=== PATIENT | female | born 1990 | race Caucasian/White ===

== ENCOUNTER 2017-03-20 08:45 | Inpatient (IN) | payer MEDICAID ==
[~2017-03-20] VITALS: Ht 160 cm; Wt 108.4 kg
[2017-03-20] MEDS ORDERED: DEXT 5%/LR + PITOCIN 20UNITS/L 1,000 ML IV SCH ×2 (09:48→12:12)
[2017-03-20] MEDS ORDERED: PNV1TABL76 PO (09:48)
[2017-03-20] MEDS ORDERED: LACTATED RINGERS 1,000 ML IV SCH (09:48)
[2017-03-20] MEDS ORDERED: PENICILLIN G POTASSIUM 5 MMU in SODIUM CHLORIDE 0.9% 100 ML IV SCH (10:00)
[2017-03-20] MEDS ORDERED: BUTORPHANOL TARTRATE 2 MG/ML VIAL IV PRN (10:00)
[2017-03-20] MEDS ORDERED: MISOPROSTOL 100MCG TABLET VG SCH (10:00)
[2017-03-20] MEDS ORDERED: METHYLERGONOVINE MALEATE 0.2 MG/ML IM PRN (10:00)
[2017-03-20] MEDS ORDERED: CARBOPROST TROMETHAMINE 250 MCG/ML AMPUL IM PRN (10:00)
[2017-03-20] MEDS ORDERED: NALOXONE HCL 0.4 MG/ML 1ML VIAL IM PRN (10:00)
[2017-03-20] MEDS ORDERED: LIDOCAINE HCL 1% 20ML VIAL (Pyxis) INJ INFIL SCH (10:00)
[2017-03-20 11:10] LABS: BASOPHILS % 0.2 % (0.0-2.0); EOSINOPHILS % 0.2 % (0.0-5.0); HEMATOCRIT. 39.6 % (36.0-48.0); HEMOGLOBIN. 13.3 g/dL (12.0-16.0); LYMPHOCYTES % 10.5 % (20.0-50.0); MEAN CORPUSCULAR HEMOGLOBIN 28.8 pg (28.0-32.0); MEAN CORPUSCULAR VOLUME 85.6 fL (81.0-99.0); MEAN PLATELET VOLUME 10.7 fl (7.4-10.4); NEUTROPHILS % 84.1 % (40.0-76.0); PLATELET 170 x1000/uL (130-400); RED BLOOD CELL COUNT 4.63 mill/uL (4.2-5.4); RED CELL DISTRIBUTION WIDTH 13.9 % (11.6-14.6)
[2017-03-20 11:42] LABS: INR 0.9; PARTIAL THROMBOPLASTIN TIME 28.5 sec (23.4-31.0); PROTHROMBIN TIME 9.9 sec (9.4-11.6)
[2017-03-20] MEDS ORDERED: DIPHENHYDRAMINE 25MG CAPSULE PO PRN (12:15)
[2017-03-20] MEDS ORDERED: HEMORRHOIDAL SUPP PR PRN (12:15)
[2017-03-20] MEDS ORDERED: LANOLIN OINT 0.25 GM TUBE TOP PRN (12:15)
[2017-03-20] MEDS ORDERED: BENZOCAINE/LANOLIN/ALOE VERA SPRAY TOP PRN (12:15)
[2017-03-20] MEDS ORDERED: ACETAMINOPHEN WITH CODEINE 300/30MG TABLET PO PRN (12:15)
[2017-03-20] MEDS ORDERED: GLYCERIN/WITCH HAZEL LEAF MEDICATED PAD TOP PRN (12:15)
[2017-03-20 12:54] LABS: HEPATITIS B SURFACE ANTIGEN NEGATIVE
[2017-03-20] MEDS ORDERED: PENICILLIN G POTASSIUM 2.5 MMU in SODIUM CHLORIDE 0.9% 50 ML IV SCH (14:00)
[2017-03-20 15:00] VITALS: BP 115/67
[2017-03-20 15:30] VITALS: BP 113/68
[2017-03-20 20:00] VITALS: BP 114/59
[2017-03-20] MEDS: DOCUSATE SODIUM 100MG CAPSULE PO SCH (21:04)
[2017-03-21] MEDS: IBUPROFEN 800MG TABLET PO PRN ×2 (03:16→11:08)
[2017-03-21 04:30] VITALS: BP 125/82
[2017-03-21 07:24] LABS: BASOPHILS % 0.2 % (0.0-2.0); EOSINOPHILS % 0.3 % (0.0-5.0); HEMATOCRIT. 34.3 % (36.0-48.0); HEMOGLOBIN. 11.7 g/dL (12.0-16.0); LYMPHOCYTES % 24.8 % (20.0-50.0); MEAN CORPUSCULAR HEMOGLOBIN 29.3 pg (28.0-32.0); MEAN PLATELET VOLUME 10.5 fl (7.4-10.4); NEUTROPHILS % 66.7 % (40.0-76.0); PLATELET 156 x1000/uL (130-400); RED CELL DISTRIBUTION WIDTH 14.3 % (11.6-14.6)
[2017-03-21 07:30] VITALS: BP 95/53
[2017-03-21] MEDS: PRENATAL VIT/FE FUMARATE/FA TABLET PO SCH (11:08)
[2017-03-21] MEDS ORDERED: FERROUS SULFATE 325MG TABLET PO SCH (12:10)
[2017-03-21 16:17] VITALS: BP 106/49
[2017-03-21] MEDS: IBUPROFEN 400MG TABLET PO PRN (20:17)
[2017-03-21] MEDS: DOCUSATE SODIUM 100MG CAPSULE PO SCH (21:14)
[2017-03-22 00:05] VITALS: BP 101/54
[2017-03-22 07:15] VITALS: BP 99/69
[2017-03-22] MEDS: PRENATAL VIT/FE FUMARATE/FA TABLET PO SCH (09:53)
[2017-03-22] MEDS: IBUPROFEN 800MG TABLET PO PRN (09:55)
[2017-03-22] MEDS ORDERED: INFLUENZA VIRUS VACCINE 0.5ML SYR IM ONE (12:15)
[2017-03-22] MEDS ORDERED: TETANUS, DIPHTHERIA, PERTUSSIS VAC/PF 0.5ML (>7YR OLD) IM ONE (12:15)
== END 2017-03-22 11:15 | disposition home or self-care (01) | DRG 560 ==
LOC: OBSVTOIN 08:45 → L&D 08:45 → 7EST PP/OB 16:37
PROVIDERS: ADMIT Specialist; ATTEND Specialist
PROC: 0HQ9XZZ Repair Perineum Skin, External Approach (ICD-10-PCS; 2017-03-20)
PROC: 10E0XZZ Delivery of Products of Conception, External Approach (ICD-10-PCS; principal; 2017-03-20 11:48)
DX: O60.14X0 Preterm labor third trimester with preterm delivery third trimester, not applicable or unspecified (principal); D64.9 Anemia, unspecified; O99.824 Streptococcus B carrier state complicating childbirth; O99.03 Anemia complicating the puerperium; O70.0 First degree perineal laceration during delivery; Z37.0 Single live birth; Z3A.36 36 weeks gestation of pregnancy
CPT/HCPCS: 36415; 76815; 82962; 85025; 85610; 85730; 86592; 86703; 86762; 86850; 86900; 87340; 90686; 90715; J0595; J2540; J2590; J3490; J7050; J7120

== ENCOUNTER 2019-04-25 07:28 | Emergency (ER) | payer SELFPAY ==
[~2019-04-25] VITALS: Ht 160 cm; Wt 92.0 kg
[~2019-04-25 07:28] MED LIST: PNV1TABL76 PO
[2019-04-25] MEDS ORDERED: ACETAMINOPHEN 325MG TABLET PO STA (08:10)
[2019-04-25] MEDS ORDERED: ONDANSETRON 4MG ODT PO STA (08:10)
[2019-04-25 08:58] LABS: CLARITY URINE CLEAR (CLEAR); COLOR URINE YELLOW (YELLOW); KETONES URINE TRACE (NEGATIVE); LEUKOCYTE ESTERASE URINE NEGATIVE (NEGATIVE); NITRITE URINE NEGATIVE (NEGATIVE); OCCULT BLOOD URINE NEGATIVE (NEGATIVE); PROTEIN URINE 1+ (NEGATIVE); SPECIFIC GRAVITY URINE 1.021 (1.005-1.030); UROBILINOGEN URINE 0.2 E.U./dL (0.2-1.0)
[2019-04-25 10:01] VITALS: BP 117/61
== END 2019-04-25 10:02 | disposition home or self-care (01) ==
LOC: ER 07:28
DX: K52.9 Noninfective gastroenteritis and colitis, unspecified (principal)
CPT/HCPCS: 81003; 81025; 99283; Q0162

== ENCOUNTER 2020-11-08 13:58 | Emergency (ER) | payer MEDICAID ==
[~2020-11-08] VITALS: Ht 160 cm; Wt 82.0 kg
[2020-11-08] MEDS ORDERED: SODIUM CHLORIDE 0.9% 1,000 ML IV ONE (14:45)
[2020-11-08 15:30] LABS: CLARITY URINE TURBID (CLEAR); COLOR URINE RED (YELLOW); KETONES URINE 1+ (NEGATIVE); LEUKOCYTE ESTERASE URINE 3+ (NEGATIVE); NITRITE URINE POSITIVE (NEGATIVE); OCCULT BLOOD URINE 3+ (NEGATIVE); PROTEIN URINE 2+ (NEGATIVE); SPECIFIC GRAVITY URINE 1.025 (1.005-1.030)
[2020-11-08] MEDS ORDERED: NITR-87 MT (15:53)
[2020-11-08 15:58] LABS: BASOPHILS % 0.4 % (0.0-2.0); EOSINOPHILS % 0.7 % (0.0-5.0); HEMATOCRIT. 39.7 % (36.0-48.0); LYMPHOCYTES % 29.3 % (20.0-50.0); MEAN CORPUSCULAR HEMOGLOBIN 30.5 pg (28.0-32.0); MEAN CORPUSCULAR VOLUME 86.4 fL (81.0-99.0); MEAN PLATELET VOLUME 9.8 fl (7.4-10.4); MONOCYTES % 5.9 % (2.0-8.0); NEUTROPHILS % 63.7 % (40.0-76.0); PLATELET 261 x1000/uL (130-400); RED CELL DISTRIBUTION WIDTH 12.7 % (11.6-14.6)
[2020-11-08 15:59] LABS: CHLORIDE 110 mEq/L (98-107)
[2020-11-08 16:10] LABS: B-HCG QUANTITATIVE < 1 mIU/mL (<3)
[2020-11-08] MEDS ORDERED: KETOROLAC 30MG/ML VIAL IV ONE (16:15)
[2020-11-08] MEDS ORDERED: IBUP-2029 MT (16:15)
[2020-11-08] MEDS ORDERED: CEFAZOLIN 1000MG PREMIX 50 ML IV ONE (16:15)
[2020-11-08 16:18] LABS: HCG SCREEN NEGATIVE
[2020-11-08 17:48] VITALS: BP 125/62
== END 2020-11-08 17:54 | disposition home or self-care (01) ==
LOC: ER 13:58
DX: N39.0 Urinary tract infection, site not specified (principal)
CPT/HCPCS: 36415; 76830; 76856; 80053; 81003; 81025; 84702; 84703; 85025; 86850; 86900; 86901; 87086; 96365; 96375; 99284; J0690; J1885; J7030

== ENCOUNTER 2021-03-07 03:27 | Emergency (ER) | payer MEDICAID ==
[~2021-03-07] VITALS: Ht 160 cm; Wt 100.0 kg
[~2021-03-07 03:27] MED LIST changes: +IBUP-2029 MT; +NITR-87 MT
[2021-03-07 05:22] LABS: CLARITY URINE CLEAR (CLEAR); COLOR URINE YELLOW (YELLOW); KETONES URINE NEGATIVE (NEGATIVE); LEUKOCYTE ESTERASE URINE 1+ (NEGATIVE); NITRITE URINE NEGATIVE (NEGATIVE); OCCULT BLOOD URINE NEGATIVE (NEGATIVE); PH URINE >=9.0 (4.5-8.0); PROTEIN URINE 1+ (NEGATIVE); SPECIFIC GRAVITY URINE 1.026 (1.005-1.030)
[2021-03-07 05:31] LABS: HEMATOCRIT. 42.1 % (36.0-48.0); HEMOGLOBIN. 14.5 g/dL (12.0-16.0); MEAN CORPUSCULAR HEMOGLOBIN 29.3 pg (28.0-32.0); MEAN CORPUSCULAR VOLUME 85.3 fL (81.0-99.0); MEAN PLATELET VOLUME 9.8 fl (7.4-10.4); PLATELET 261 x1000/uL (130-400); RED BLOOD CELL COUNT 4.94 mill/uL (4.2-5.4); RED CELL DISTRIBUTION WIDTH 13.2 % (11.6-14.6)
[2021-03-07 05:38] LABS: CHLORIDE 106 mEq/L (98-107)
[2021-03-07 06:27] LABS: PLATELET ESTIMATE NORMAL
[2021-03-07] MEDS ORDERED: ONDANSETRON HCL 4MG/2ML INJ IV ONE (07:00)
[2021-03-07] MEDS ORDERED: ACETAMINOPHEN 500MG TABLET PO SCH (07:30)
[2021-03-07] MEDS ORDERED: CEFTRIAXONE 1 G PREMIX 50 ML IV NR (08:30)
[2021-03-07] MEDS ORDERED: CEPH500C2 MT (08:30)
[2021-03-07] MEDS ORDERED: ONDA4TAB5 MT (08:32)
[2021-03-07] MEDS ORDERED: IOHEXOL-300 100 ML BOTTLE ONE (08:52)
[2021-03-07 09:05] VITALS: BP 118/79
== END 2021-03-07 09:21 | disposition home or self-care (01) ==
LOC: ER 03:27
DX: N39.0 Urinary tract infection, site not specified (principal); Z20.822 Contact with and (suspected) exposure to COVID-19
CPT/HCPCS: 36415; 74177; 80053; 81003; 81025; 83690; 85025; 87426; 93005; 96365; 96375; 99285; J0696; J2405; Q9967

== ENCOUNTER 2021-07-05 18:59 | Emergency (ER) | payer MEDICAID ==
[~2021-07-05] VITALS: Ht 160 cm; Wt 103.6 kg
[~2021-07-05 18:59] MED LIST changes: +CEPH500C2 MT; +ONDA4TAB5 MT
[2021-07-05 20:13] LABS: BASOPHILS % 0.2 % (0.0-2.0); EOSINOPHILS % 1.1 % (0.0-5.0); HEMATOCRIT. 40.2 % (36.0-48.0); HEMOGLOBIN. 13.7 g/dL (12.0-16.0); LYMPHOCYTES % 21.9 % (20.0-50.0); MEAN CORPUSCULAR HEMOGLOBIN 29.6 pg (28.0-32.0); MEAN CORPUSCULAR VOLUME 87.3 fL (81.0-99.0); MEAN PLATELET VOLUME 9.7 fl (7.4-10.4); MONOCYTES % 6.2 % (2.0-8.0); NEUTROPHILS % 70.6 % (40.0-76.0); PLATELET 241 x1000/uL (130-400); RED BLOOD CELL COUNT 4.61 mill/uL (4.2-5.4); RED CELL DISTRIBUTION WIDTH 13.3 % (11.6-14.6)
[2021-07-05 20:22] LABS: CHLORIDE 106 mEq/L (98-107)
[2021-07-05 20:46] LABS: B-HCG QUANTITATIVE 75940 mIU/mL (<3)
[2021-07-05 22:31] VITALS: BP 138/81
== END 2021-07-05 23:02 | disposition home or self-care (01) ==
LOC: ER 18:59
DX: O20.0 Threatened abortion (principal); Z3A.09 9 weeks gestation of pregnancy; Z79.899 Other long term (current) drug therapy
CPT/HCPCS: 36415; 76801; 80048; 84702; 85025; 86850; 86900; 99284

== ENCOUNTER 2021-08-21 08:49 | Emergency (ER) | payer MEDICAID ==
[~2021-08-21] VITALS: Ht 160 cm; Wt 104.0 kg
[2021-08-21 08:53] VITALS: BP 122/82
[2021-08-21] MEDS ORDERED: ONDANSETRON HCL 4MG/2ML INJ IV STA (09:06)
[2021-08-21] MEDS ORDERED: SODIUM CHLORIDE 0.9% 1,000 ML IV ONE (09:15)
[2021-08-21 09:36] LABS: BASOPHILS % 0.3 % (0.0-2.0); EOSINOPHILS % 0.9 % (0.0-5.0); HEMATOCRIT. 37.4 % (36.0-48.0); HEMOGLOBIN. 13.1 g/dL (12.0-16.0); LYMPHOCYTES % 19.5 % (20.0-50.0); MEAN CORPUSCULAR HEMOGLOBIN 30.3 pg (28.0-32.0); MEAN CORPUSCULAR VOLUME 86.4 fL (81.0-99.0); MEAN PLATELET VOLUME 9.9 fl (7.4-10.4); MONOCYTES % 6.7 % (2.0-8.0); NEUTROPHILS % 72.6 % (40.0-76.0); PLATELET 206 x1000/uL (130-400); RED BLOOD CELL COUNT 4.33 mill/uL (4.2-5.4); RED CELL DISTRIBUTION WIDTH 13.7 % (11.6-14.6)
[2021-08-21 09:49] LABS: CHLORIDE 105 mEq/L (98-107)
[2021-08-21 09:51] LABS: CLARITY URINE CLEAR (CLEAR); COLOR URINE YELLOW (YELLOW); KETONES URINE NEGATIVE (NEGATIVE); LEUKOCYTE ESTERASE URINE 3+ (NEGATIVE); NITRITE URINE NEGATIVE (NEGATIVE); OCCULT BLOOD URINE NEGATIVE (NEGATIVE); PROTEIN URINE NEGATIVE (NEGATIVE); SPECIFIC GRAVITY URINE 1.014 (1.005-1.030); UROBILINOGEN URINE 0.2 E.U./dL (0.2-1.0)
[2021-08-21] MEDS ORDERED: ONDA4TAB11 PO (13:57)
[2021-08-21] MEDS ORDERED: LOPE2TAB26 MT (13:57)
== END 2021-08-21 14:27 | disposition home or self-care (01) ==
LOC: ER 08:49
DX: O98.512 Other viral diseases complicating pregnancy, second trimester (principal); Z20.822 Contact with and (suspected) exposure to COVID-19; Z3A.16 16 weeks gestation of pregnancy; O26.891 Other specified pregnancy related conditions, first trimester; R19.7 Diarrhea, unspecified
CPT/HCPCS: 36415; 80053; 81003; 83690; 85025; 87426; 96361; 96374; 99283; C9803; J2405; J7030

== ENCOUNTER 2021-08-30 22:40 | Emergency (ER) | payer MEDICAID ==
[~2021-08-30] VITALS: Ht 160 cm; Wt 105.0 kg
[~2021-08-30 22:40] MED LIST changes: +LOPE2TAB26 MT; +ONDA4TAB11 PO
[2021-08-30 22:59] VITALS: BP 130/78
[2021-08-30] MEDS ORDERED: ACETAMINOPHEN 325MG TABLET PO STA (23:17)
[2021-08-30] MEDS ORDERED: ONDANSETRON 4MG ODT PO STA (23:17)
[2021-08-31 00:29] LABS: CLARITY URINE CLEAR (CLEAR); COLOR URINE YELLOW (YELLOW); KETONES URINE NEGATIVE (NEGATIVE); LEUKOCYTE ESTERASE URINE 1+ (NEGATIVE); NITRITE URINE NEGATIVE (NEGATIVE); OCCULT BLOOD URINE NEGATIVE (NEGATIVE); PH URINE 5.5 (4.5-8.0); PROTEIN URINE NEGATIVE (NEGATIVE); SPECIFIC GRAVITY URINE 1.009 (1.005-1.030); UROBILINOGEN URINE 0.2 E.U./dL (0.2-1.0)
[2021-08-31] MEDS ORDERED: FLUT15.813 NS (01:02)
== END 2021-08-31 01:19 | disposition home or self-care (01) ==
LOC: ER 22:40
DX: B34.9 Viral infection, unspecified (principal); Z20.822 Contact with and (suspected) exposure to COVID-19; R11.0 Nausea; M79.18 Myalgia, other site
CPT/HCPCS: 81003; 87426; 99283; C9803; Q0162

== ENCOUNTER 2022-01-09 08:52 | Observation (INO) | payer MEDICAID ==
[~2022-01-09] VITALS: Ht 160 cm; Wt 111.6 kg
[~2022-01-09 08:52] MED LIST changes: +FLUT15.813 NS
[2022-01-09] MEDS ORDERED: ONDANSETRON HCL 4MG/2ML INJ IV SCH (09:15)
[2022-01-09] MEDS ORDERED: LACTATED RINGERS 1,000 ML IV SCH (09:45)
[2022-01-09] MEDS ORDERED: ACETAMINOPHEN 500MG TABLET PO NR (09:45)
[2022-01-09 10:12] LABS: CLARITY URINE CLOUDY (CLEAR); COLOR URINE YELLOW (YELLOW); KETONES URINE 1+ (NEGATIVE); LEUKOCYTE ESTERASE URINE 2+ (NEGATIVE); NITRITE URINE NEGATIVE (NEGATIVE); OCCULT BLOOD URINE NEGATIVE (NEGATIVE); PROTEIN URINE 1+ (NEGATIVE); SPECIFIC GRAVITY URINE 1.021 (1.005-1.030); UROBILINOGEN URINE 0.2 E.U./dL (0.2-1.0)
[2022-01-09 10:26] LABS: CHLORIDE 106 mEq/L (98-107)
== END 2022-01-09 11:41 | disposition home or self-care (01) ==
LOC: 8 EST LDRP 08:52
PROVIDERS: ADMIT Obstetrics & Gynecology; ATTEND Obstetrics & Gynecology
DX: O26.893 Other specified pregnancy related conditions, third trimester (principal); R10.9 Unspecified abdominal pain; R19.7 Diarrhea, unspecified; O21.2 Late vomiting of pregnancy; Z3A.35 35 weeks gestation of pregnancy
CPT/HCPCS: 36415; 59025; 80053; 81003; 87426; 96361; 96374; G0378; J2405; 96360; 96365; 99281; G0379

== ENCOUNTER 2022-01-21 13:43 | Inpatient (IN) | payer MEDICAID ==
[~2022-01-21] VITALS: Ht 160 cm; Wt 110.7 kg
[2022-01-21] MEDS ORDERED: MISOPROSTOL 100MCG TABLET VG PRN (14:30)
[2022-01-21] MEDS ORDERED: CARBOPROST TROMETHAMINE 250 MCG/ML AMPUL IM PRN (14:30)
[2022-01-21] MEDS ORDERED: LIDOCAINE HCL 1% 20ML VIAL (Pyxis) INJ INFIL PRN (14:30)
[2022-01-21] MEDS ORDERED: METHYLERGONOVINE MALEATE 0.2 MG/ML IM PRN ×2 (14:30→19:30)
[2022-01-21] MEDS ORDERED: LACTATED RINGERS 1,000 ML IV SCH (14:30)
[2022-01-21 15:22] LABS: BASOPHILS % 0.3 % (0.0-2.0); EOSINOPHILS % 0.3 % (0.0-5.0); HEMOGLOBIN. 12.3 g/dL (12.0-16.0); MEAN CORPUSCULAR HEMOGLOBIN 26.2 pg (28.0-32.0); MEAN CORPUSCULAR VOLUME 78.5 fL (81.0-99.0); MEAN PLATELET VOLUME 10.3 fl (7.4-10.4); MONOCYTES % 5.2 % (2.0-8.0); NEUTROPHILS % 74.2 % (40.0-76.0); PLATELET 172 x1000/uL (130-400); RED BLOOD CELL COUNT 4.71 mill/uL (4.2-5.4); RED CELL DISTRIBUTION WIDTH 16.8 % (11.6-14.6)
[2022-01-21] MEDS ORDERED: PENICILLIN G POTASSIUM 5 MMU in DEXT 5% WATER 100 ML IV SCH (15:30)
[2022-01-21 15:31] LABS: INR 0.9; PARTIAL THROMBOPLASTIN TIME 26.2 sec (23.4-31.0); PROTHROMBIN TIME 9.7 sec (9.6-11.0)
[2022-01-21 16:14] LABS: HEPATITIS B SURFACE ANTIGEN NEGATIVE
[2022-01-21] MEDS ORDERED: BUTORPHANOL TARTRATE 2 MG/ML VIAL IM PRN (16:15)
[2022-01-21] MEDS: OXYTOCIN 30 UNITS/500ML NS PMX 500 ML IV SCH ×2 (16:49→18:14)
[2022-01-21 18:57] LABS: CLARITY URINE CLOUDY (CLEAR); COLOR URINE YELLOW (YELLOW); KETONES URINE TRACE (NEGATIVE); LEUKOCYTE ESTERASE URINE 3+ (NEGATIVE); NITRITE URINE NEGATIVE (NEGATIVE); OCCULT BLOOD URINE NEGATIVE (NEGATIVE); PH URINE 5.5 (4.5-8.0); PROTEIN URINE 1+ (NEGATIVE); SPECIFIC GRAVITY URINE 1.025 (1.005-1.030)
[2022-01-21 19:24] LABS: *AMPHETAMINES SCREEN URINE NEGATIVE (NEGATIVE); *BARBITURATES SCREEN URINE NEGATIVE (NEGATIVE); *BENZODIAZEPINES SCREEN URINE NEGATIVE (NEGATIVE); *COCAINE SCREEN URINE NEGATIVE (NEGATIVE); CANNABINOID URINE SCREEN NEGATIVE (NEGATIVE); METHADONE URINE SCREEN NEGATIVE (NEGATIVE); OPIATES URINE SCREEN NEGATIVE (NEGATIVE); PHENCYCLIDINE URINE SCREEN NEGATIVE (NEGATIVE)
[2022-01-21] MEDS ORDERED: DIPHENHYDRAMINE 25MG CAPSULE PO PRN (19:30)
[2022-01-21] MEDS ORDERED: RHO(D) IMMUNE GLOBULIN 300 MCG/SYR IM PRN (19:30)
[2022-01-21] MEDS ORDERED: LANOLIN OINT 7GM TUBE TOP PRN (19:30)
[2022-01-21] MEDS ORDERED: OXYTOCIN 30 UNITS/500ML NS PMX 500 ML IV SCH (19:30)
[2022-01-21] MEDS ORDERED: IBUPROFEN 400MG TABLET PO PRN (19:30)
[2022-01-21] MEDS ORDERED: ACETAMINOPHEN WITH CODEINE 300/30MG TABLET PO PRN (19:30)
[2022-01-21] MEDS ORDERED: PENICILLIN G POTASSIUM 2.5 MMU in DEXTROSE 5% WATER 50 ML IV SCH (20:00)
[2022-01-21] MEDS: IBUPROFEN 800MG TABLET PO PRN (20:25)
[2022-01-21 22:00] VITALS: BP 121/74
[2022-01-22 01:30] VITALS: BP 123/77
[2022-01-22 04:46] VITALS: BP 104/59
[2022-01-22 07:41] LABS: BASOPHILS % 0.3 % (0.0-2.0); EOSINOPHILS % 0.5 % (0.0-5.0); HEMATOCRIT. 31.7 % (36.0-48.0); HEMOGLOBIN. 10.5 g/dL (12.0-16.0); LYMPHOCYTES % 27.3 % (20.0-50.0); MEAN CORPUSCULAR HEMOGLOBIN 26.3 pg (28.0-32.0); MEAN CORPUSCULAR VOLUME 79.5 fL (81.0-99.0); MONOCYTES % 6.5 % (2.0-8.0); NEUTROPHILS % 65.4 % (40.0-76.0); PLATELET 139 x1000/uL (130-400); RED BLOOD CELL COUNT 3.99 mill/uL (4.2-5.4); RED CELL DISTRIBUTION WIDTH 16.4 % (11.6-14.6)
[2022-01-22] MEDS ORDERED: PRENATAL VIT/FE FUMARATE/FA TABLET PO SCH (09:00)
[2022-01-22 10:00] VITALS: BP 100/67
[2022-01-22] MEDS: IBUPROFEN 800MG TABLET PO PRN (13:50)
[2022-01-22 16:30] VITALS: BP 100/58
[2022-01-22 20:00] VITALS: BP 117/67
[2022-01-23] MEDS: IBUPROFEN 800MG TABLET PO PRN (04:18)
[2022-01-23 04:30] VITALS: BP 135/80
[2022-01-23] MEDS ORDERED: FERR325T6 MT (07:39)
[2022-01-23] MEDS ORDERED: IBUP-2030 PO (07:39)
[2022-01-23 08:00] VITALS: BP 121/85
== END 2022-01-23 11:30 | disposition home or self-care (01) | DRG 560 ==
LOC: 8 EST LDRP 13:43 → OBSVTOIN 13:44 → 8 EST LDRP 13:55 → 8 EST A/PP 19:57
PROVIDERS: ADMIT Obstetrics & Gynecology; ATTEND Obstetrics & Gynecology
PROC: 10E0XZZ Delivery of Products of Conception, External Approach (ICD-10-PCS; principal; 2022-01-21)
DX: O69.81X0 Labor and delivery complicated by cord around neck, without compression, not applicable or unspecified (principal); Z37.0 Single live birth; O99.02 Anemia complicating childbirth; O99.824 Streptococcus B carrier state complicating childbirth; O99.214 Obesity complicating childbirth; Z3A.37 37 weeks gestation of pregnancy; Z20.822 Contact with and (suspected) exposure to COVID-19
CPT/HCPCS: 36415; 80305; 81003; 85025; 86592; 86703; 86762; 86850; 86900; 87340; 87426; 99281; G0378; J0595; J2540; J3490; J7060; J7120; J2590

== ENCOUNTER 2022-12-26 19:15 | Emergency (ER) | payer MEDICAID ==
[~2022-12-26] VITALS: Ht 160 cm; Wt 109.0 kg
[~2022-12-26 19:15] MED LIST changes: -CEPH500C2 MT; +FERR325T6 MT; -FLUT15.813 NS; -IBUP-2029 MT; +IBUP-2030 PO; -LOPE2TAB26 MT; -NITR-87 MT; -ONDA4TAB11 PO; -ONDA4TAB5 MT
[2022-12-26 19:57] VITALS: BP 141/82; PULSE 94; RESP 18; TEMP 98.1; O2SAT 98
[2022-12-26] MEDS ORDERED: AM250 MT (23:06)
== END 2022-12-26 23:23 | disposition home or self-care (01) ==
LOC: ER 19:15
DX: H66.92 Otitis media, unspecified, left ear (principal)
CPT/HCPCS: 99283